=== PATIENT | female | born 1970 | race African-American/Black ===

== ENCOUNTER 2023-07-04 11:46 | Outpatient (REF) | payer MEDICAID, OTHER, SELFPAY ==
--- NOTE | ~2023-07-04 | MM_ITS ---
EXAMINATION: MM SCREENING DIGITAL BREAST TOMOSYNTHESIS, BILATERAL CLINICAL INFORMATION: Screening. Asymptomatic. COMPARISON: Mammography: There are no prior studies for comparison. TECHNIQUE: Digital breast tomosynthesis is performed in both the craniocaudal and mediolateral oblique views along with computer-aided detection (CAD). Synthesized 2D images are generated from the tomosynthesis. FINDINGS: There are scattered areas of fibroglandular density (ACR BI-RADS breast composition Category b). There are no significant masses, abnormal calcifications, or other abnormalities. MM/MM tomosynthesis screening BI IMPRESSION: No mammographic evidence of malignancy. ASSESSMENT: BI-RADS BI-RADS 1 - Negative RECOMMENDATION: Routine annual mammography screening. 1 year F/U This examination should not preclude the clinical evaluation of a suspicious palpable abnormality. This patient's information was entered into a reminder system with a target due date for their next mammogram.
== END 2023-07-04 11:47 | disposition home or self-care (01) ==
LOC: HO.MAMMO 11:46
PROVIDERS: PCP Nurse Practitioner Family; Visit Provider Nurse Practitioner Family
DX: Z12.31 Encounter for screening mammogram for malignant neoplasm of breast (principal)
CPT/HCPCS: 77063; 77067

== ENCOUNTER → 2023-07-04 12:00 | Outpatient (BNV) | payer SELFPAY | PROVIDERS: PCP Nurse Practitioner Family; Visit Provider Radiology Diagnostic Radiology | DX: Z12.31 Encounter for screening mammogram for malignant neoplasm of breast (principal) | CPT/HCPCS: 77063; 77067 ==

== ENCOUNTER 2023-08-22 12:54 | Outpatient (REF) | payer MEDICAID, OTHER, SELFPAY ==
[2023-08-22 16:13] LABS: MANUAL DIFF FLAG NO
[2023-08-22 16:23] LABS: Basophils Absolute Auto 0.1 X10*3/uL (0.0-0.2); Basophils Percent Auto 1.2 % (0-2); Eosinophils Absolute Auto 0.1 X10*3/uL (0.0-0.4); Eosinophils Percent Auto 1.4 % (0-4); Hematocrit 39.8 % (37.0-47.0); Hemoglobin 13.3 g/dl (12.0-16.0); Imm Gran Abs Auto 0.02 X10*3/uL (0.00-0.03); Imm Gran Pct Auto 0.4 % (0.0-0.4); Lymphocytes Absolute Auto 1.9 X10*3/uL (1.2-4.9); Lymphocytes Percent Auto 34.3 % (20-40); Mean Corpuscular HGB Conc 33.4 g/dl (31.0-35.0); Mean Corpuscular Hemoglobin 29.6 pg (27.0-33.0); Mean Corpuscular Volume 88.6 fL (80.0-98.0); Mean Platelet Volume 10.4 fL (9.4-12.3); Monocytes Absolute Auto 0.4 X10*3/uL (0.1-1.2); Monocytes Percent Auto 6.8 % (2-11); Neutrophils Absolute Auto 3.1 x10*3/uL (2.0-8.3); Neutrophils Percent Auto 55.9 % (45-73); Platelet Count 263 X10*3/uL (160-400); Red Blood Count 4.49 X10*6/uL (4.20-5.50); Red Cell Distribution Width 12.2 % (11.0-16.0); White Blood Count 5.6 X10*3/uL (4.8-10.8)
== END 2023-08-22 12:55 | disposition home or self-care (01) ==
LOC: HO.HHCL 12:54
PROVIDERS: Visit Provider Nurse Practitioner Family
DX: E11.65 Type 2 diabetes mellitus with hyperglycemia (principal); Z79.4 Long term (current) use of insulin
CPT/HCPCS: 36415; 85025

== ENCOUNTER 2023-09-06 13:19 | Outpatient (REF) | payer MEDICAID, OTHER, SELFPAY ==
--- NOTE | ~2023-09-06 | XR_ITS ---
EXAMINATION: XR SHOULDER, RIGHT CLINICAL INFORMATION: Chronic right shoulder pain, worse when lifting her arm COMPARISON: None available. TECHNIQUE: AP external rotation, Grashey, scapular Y, and axillary views of the right shoulder. FINDINGS: The bones and soft tissues are normal. No fracture. Glenohumeral and acromioclavicular alignment is anatomic with normal joint space. No abnormal soft tissue calcifications. XR/XR shoulder RT min 2V IMPRESSION: Unremarkable plain radiographs of the right shoulder.
== END 2023-09-06 13:20 | disposition home or self-care (01) ==
LOC: HO.HHCX 13:19
PROVIDERS: Visit Provider Nurse Practitioner Primary Care
DX: M25.511 Pain in right shoulder (principal)
CPT/HCPCS: 73030

== ENCOUNTER 2024-04-20 09:18 | Outpatient (REF) | payer MEDICAID, OTHER, SELFPAY ==
[2024-04-20 11:17] LABS: MANUAL DIFF FLAG NO
[2024-04-20 11:29] LABS: Basophils Absolute Auto 0.1 X10*3/uL (0.0-0.2); Basophils Percent Auto 1.1 % (0-2); Eosinophils Absolute Auto 0.1 X10*3/uL (0.0-0.4); Eosinophils Percent Auto 0.9 % (0-4); Hematocrit 40.9 % (37.0-47.0); Hemoglobin 13.8 g/dl (12.0-16.0); Imm Gran Abs Auto 0.02 X10*3/uL (0.00-0.03); Imm Gran Pct Auto 0.3 % (0.0-0.4); Lymphocytes Absolute Auto 2.2 X10*3/uL (1.2-4.9); Lymphocytes Percent Auto 33.7 % (20-40); Mean Corpuscular HGB Conc 33.7 g/dl (31.0-35.0); Mean Corpuscular Volume 88.9 fL (80.0-98.0); Mean Platelet Volume 11.9 fL (9.4-12.3); Monocytes Absolute Auto 0.4 X10*3/uL (0.1-1.2); Monocytes Percent Auto 6.3 % (2-11); Neutrophils Absolute Auto 3.8 x10*3/uL (2.0-8.3); Neutrophils Percent Auto 57.7 % (45-73); Platelet Count 195 X10*3/uL (160-400); Red Cell Distribution Width 12.7 % (11.0-16.0); White Blood Count 6.5 X10*3/uL (4.8-10.8)
[2024-04-20 12:03] LABS: Alanine Aminotransferase 42 U/L (0-31); Albumin Level 4.5 g/dL (3.5-5.0); Alkaline Phosphatase 102 U/L (39-117); Anion Gap 11 (12-20); Aspartate Amino Transferase 30 U/L (5-31); Bilirubin Total 0.3 mg/dL (0.0-1.0); Blood Urea Nitrogen 8 mg/dL (9-16); Calcium 9.5 mg/dL (8.4-10.2); Carbon Dioxide 26 mmol/L (22-29); Chloride 108 mmol/L (96-108); Cholesterol 178 mg/dL (<200); Estimated Glomerular Filt Rate > 60; Glucose Random 86 mg/dL (60-115); HDL Cholesterol 59 mg/dL (>40); LDL Cholesterol Calculated 107 mg/dL (<100); Potassium 3.3 mmol/L (3.3-5.1); Sodium 142 mmol/L (135-145); Total Protein 7.6 g/dL (6.5-8.0); Triglycerides 62 mg/dL (<150)
[2024-04-20 12:10] LABS: Creatinine Urine 75.48 mg/dL; Microalbum/Creatinine Ratio Ur 68.8 ug/mg cr (<30)
[2024-04-30 19:29] LABS: C. trachomatis RNA TMA NOT DETECTED (NOT DETECTED); N. gonorrhoeae RNA TMA NOT DETECTED (NOT DETECTED)
[2024-04-30 20:03] LABS: Trichomonas (NAAT) NOT DETECTED (NOT DETECTED)
[2024-04-30 20:33] LABS: HPV mRNA E6/E7 rflx Not Detected (Not Detected)
== END 2024-04-20 09:19 | disposition home or self-care (01) ==
LOC: HO.HHCL 09:18
PROVIDERS: Visit Provider Nurse Practitioner Family
DX: E11.65 Type 2 diabetes mellitus with hyperglycemia (principal); Z79.4 Long term (current) use of insulin; Z12.4 Encounter for screening for malignant neoplasm of cervix
CPT/HCPCS: 36415; 80053; 80061; 82043; 82570; 85025; 87491; 87591; 87624; 87661; 88142

== ENCOUNTER 2025-07-09 09:19 | Outpatient (REF) | payer SELFPAY ==
--- OUTSIDE RECORDS SUMMARY | 2025-07-09 10:12 | XMS_ITS | Encounter Summary ---
Author Organization [employer] Address [address] [facility] [address]t [place] [address] Care Team Providers Care Superintendent Terminal Name Role Phone Nancie Giordano ROUSTABOUT CREW PUSHER Primary Care Provider [phone] Rohini Cochran NP Primary Care Provider [phone] Eliceo Talavera MD Primary Care Prov ider Encounter Details Date Type Department Care Team (Late st Contact Info) Description 11/01/2023 Abstract [facility] ADULT DENTAL [address] [place], [place] [phone] Charlene Criselda [address] [place] [address] Social History Tobacco Use Types Packs/Day Years Used Date Smoking Tobacco: Former Cigarettes 0.5 10 Passive Smoke Exposure: Past Smokeless Tobacco: Never Comments:Quit smoking 4 year s ago Alcohol Use Standard Drinks/Week Comments Not Currently 0 (1 standard drink = 0.6 oz pur e alcohol) Depression Answer Date Recorded Patient Health Questionnaire-9 Score 19 09/07/2023 Patient Health Questionnaire-9 Score 19 09/07/2023 Last PHQ-9: Questionnaire Data Not on file 1 11/07/2022 Housing Stability Answer Date Recorded What is your housing situation today? I have jj clark 08/22/[address] you li ve. Do you have problems with any of the following? None of the above 08/22/2023 Food Insecurity Answer Date Recorded Within the past 12 months, y ou worried that your food would run out before you got money to buy more: Never True 08/22/2023 Within the past 12 months,th e food you bought just didn't last and you didn't have enough money to get more: Never True Transportation Answer Date Recorded In the past 12 months, has l ack of transportation kept you from medical appts, meetings, work or from getting things needed for daily living? No 08/22/2023 Utilities Answer Date Recorded In the past 12 months, has t he electric, gas, oil or water company threatened to shut off services in your home? No 08/22/2023 Depression Answer Date Recorded Patient Health Questionnaire-2 Score 4 09/07/2023 Comments Unknown Sex and Gender Information Value Date Recorded Sex Assigned at Female 01/26/2023 11:05 AM EDT Legal Sex Female 1:20 PM EST Gender Identity Female 01/26/2023 11:05 AM EDT Sexual Orientation Don't know 01/26/2023 11 :05 AM EDT documented as of this encounter Plan of Treatment Upcoming Encounters Date Type Department Care Team (Late st Contact Info) Description 07/09/2025 2:00 PM EDT Office Visit [facility] ADULT DENTAL [address] [place] [address] Earnest Fuller 10/10/2025 3:00 PM EST Office Visit [facility] OPTOM[facility] [address] [place] [address] Elsa Pathak, OD [address] [place] [address] documented as of this encounter Visit Diagnoses Not on filedocumented in this encounter Additional Health Concerns Assessment Noted Time PHQ-9 Depression Total Score: 19 023 4:23 PM EDT documented as of this encounter Care Teams Superintendent Terminal Relationship Specialty Start Date End Date Nancie Giordano FNP [address] [place] [address] PCP - General Family Medicine 04/12/23 07/10/24 Rohini Cochran NP [address] [place] [address] PCP - General Family Medicine 07/11/24 08/08/24 Eliceo Talavera MD [address] [place] [address] PCP - General Internal Medicine 04/22/25 documented as of this encounter
--- OUTSIDE RECORDS SUMMARY | 2025-07-09 10:12 | XMS_ITS | Encounter Summary ---
Author Organization [employer] Address [address] [facility] 7t [place] [address] Care Team Providers Care Liquefaction Supervisor Name Role Phone Nancie Giordano EDUCATOR SENIOR CLINICAL Primary Care Provider [phone] Rohini Cochran NP Primary Care Provider [phone] Eliceo Talavera MD Primary Care Prov ider Encounter Details Date Type Department Care Team (Late st Contact Info) Description 10/24/2023 Abstract [facility] ADULT DENTAL [address] [place], [place] [phone] Charlene Criselda [address] [place] [address] Social History Tobacco Use Types Packs/Day Years [...] Description 07/09/2025 2:00 PM EDT Office Visit [facility] ADULT DENTAL [address] [place] [address] Earnest Fuller 10/10/2025 3:00 PM EST Office Visit [facility] OPTOMETRY [address] [place] [address] Elsa Pathak, OD [address] [place] [address] documented as of this encounter Visit Diagnoses Not on filedocumented in this encounter Additional Health Concerns Assessment Noted Time PHQ-9 Depression Total Score: 19 023 4:23 PM EDT documented as of this encounter Care Teams Liquefaction Supervisor Relationship Specialty Start Date End Date Nancie Giordano FNP [address] [place] [address] PCP - General Family Medicine 04/12/23 07/10/24 Rohini Cochran NP [address] [place] [address] PCP - General Family Medicine 07/11/24 08/08/24 Eliceo Talavera MD [address] [place] [address] PCP - General Internal Medicine 04/22/25 documented as of this encounter
--- OUTSIDE RECORDS SUMMARY | 2025-07-09 10:12 | XMS_ITS | Encounter Summary ---
Author Organization [employer] Address [address] [facility] 7 [place] [address] Care Team Providers Care Verifying Machine Operator Name Role Phone Nancie Giordano Primary Care Provider [phone] Rohini Cochran NP Primary Care Provider [phone] Eliceo Talavera MD Primary Care Prov ider Encounter Details Date Type Department Care Team (Late st Contact Info) Description 04/13/2023 Orders Only [facility] MEDICINE [address] [place] [address] Nancie Giordano FNP [address] [place] [address] Social History Tobacco Use Types Packs/Day Years Used Date Smoking Tobacco: Never Smokeless Tobacco: Never Alcohol Use Standard Drinks/Week Comments Never 0 (1 standard drink = 0.6 oz pur e alcohol) Comments Unknown Sex and Gender Information Value [...] Description 07/09/2025 2:00 PM EDT Office Visit [facility] CH[facility] ADULT DENTAL [address] [place] [address] Earnest Fuller 10/10/2025 3:00 PM EST Office Visit [facility] OPTOMETRY [address] [place], [place] [phone] Elsa Pathak OD [address] [place] [address] documented as of this encounter Visit Diagnoses Not on filedocumented in this encounter Care Teams Verifying Machine Operator Relationship Specialty Start Date End Date Nancie Giordano FNP [address] [place] [address] PCP - General Family Medicine 04/12/23 07/10/24 Rohini Cochran NP [address] [place] [address] PCP - General Family Medicine 07/11/24 08/08/24 Eliceo Talavera MD [address] [place] [address] PCP - General Internal Medicine 04/22/25 documented as of this encounter
--- OUTSIDE RECORDS SUMMARY | 2025-07-09 10:12 | XMS_ITS | Encounter Summary ---
Author Organization [employer] Address [address] [facility] 7t [place] [address] Care Team Providers Care Watershed Program Manager Name Role Phone Nancie Giordano TILTING HEAD BAND SAWYER Primary Care Provider [phone] Rohini Cochran NP Primary Care Provider [phone] Eliceo Talavera MD Primary Care Prov ider Encounter Details Date Type Department Care Team (Late st Contact Info) Description 10/24/2023 Abstract [facility] ADULT DENTAL [address] [place], [place] [phone] Charlene Criselda [address] [place] [address] Social History Tobacco Use Types Packs/Day Years [...] Description 07/09/2025 2:00 PM EDT Office Visit [facility] ADULT DENTAL [address] [place] [address] Earnest Fuller 10/10/2025 3:00 PM EST Office Visit [facility] OPTOMETRY [address] [place] [address] Elsa Pathak, OD [address] [place] [address] documented as of this encounter Visit Diagnoses Not on filedocumented in this encounter Additional Health Concerns Assessment Noted Time PHQ-9 Depression Total Score: 19 023 4:23 PM EDT documented as of this encounter Care Teams Watershed Program Manager Relationship Specialty Start Date End Date Nancie Giordano FNP [address] [place] [address] PCP - General Family Medicine 04/12/23 07/10/24 Rohini Cochran NP [address] [place] [address] PCP - General Family Medicine 07/11/24 08/08/24 Eliceo Talavera MD [address] [place] [address] PCP - General Internal Medicine 04/22/25 documented as of this encounter
--- OUTSIDE RECORDS SUMMARY | 2025-07-09 10:12 | XMS_ITS | Encounter Summary ---
Author Organization [employer] Address [address] [facility] 7t [place] [address] Care Team Providers Care Senior Web Analyst Name Role Phone Nancie Giordano AIRDOX FITTER Primary Care Provider [phone] Rohini Cochran NP Primary Care Provider [phone] Eliceo Talavera MD Primary Care Prov ider Encounter Details Date Type Department Care Team (Late st Contact Info) Description 10/24/2023 Abstract [facility] ADULT DENTAL [address] [place], [place] [phone] Charlene Criselda [address] [place] [address] Social History Tobacco Use Types Packs/Day Years [...] Description 07/09/2025 2:00 PM EDT Office Visit [facility] CH[facility] ADULT DENTAL [address] [place] [address] Earnest Fuller 10/10/2025 3:00 PM EST Office Visit [facility] OPTOMETRY [address] [place] [address] Elsa Pathak, OD [address] [place] [address] documented as of this encounter Visit Diagnoses Not on filedocumented in this encounter Additional Health Concerns Assessment Noted Time PHQ-9 Depression Total Score: 19 023 4:23 PM EDT documented as of this encounter Care Teams Senior Web Analyst Relationship Specialty Start Date End Date Nancie Giordano FNP [address] [place] [address] PCP - General Family Medicine 04/12/23 07/10/24 Rohini Cochran NP [address] [place] [address] PCP - General Family Medicine 07/11/24 08/08/24 Eliceo Talavera MD [address] [place] [address] PCP - General Internal Medicine 04/22/25 documented as of this encounter
--- OUTSIDE RECORDS SUMMARY | 2025-07-09 10:12 | XMS_ITS | Encounter Summary ---
Author Organization [employer] Address [address] [facility] 7t [place] [address] Care Team Providers Care Manufacturing Helper Name Role Phone Nancie Girodano MECHANICAL AND AUTO BODY CAR CHECKER Primary Care Provider [phone] Rohini Cochran NP Primary Care Provider [phone] Eliceo Talavera MD Primary Care Prov ider Encounter Details Date Type Department Care Team (Late st Contact Info) Description 10/24/2023 Abstract [facility] ADULT DENTAL [address] [place], [place] [phone] Charlene Criselda [address] [place] [address] Social History Tobacco Use Types Packs/Day Years [...] Description 07/09/2025 2:00 PM EDT Office Visit [facility] CH[facility] ADULT DENTAL [address] [place] [address] Earnest Fuller 10/10/2025 3:00 PM EST Office Visit [facility] OPTOMETRY [address] [place] [address] Elsa Pathak, OD [address] [place] [address] documented as of this encounter Visit Diagnoses Not on filedocumented in this encounter Additional Health Concerns Assessment Noted Time PHQ-9 Depression Total Score: 19 023 4:23 PM EDT documented as of this encounter Care Teams Manufacturing Helper Relationship Specialty Start Date End Date Nancie Giordano FNP [address] [place] [address] PCP - General Family Medicine 04/12/23 07/10/24 Rohini Cochran NP [address] [place] [address] PCP - General Family Medicine 07/11/24 08/08/24 Eliceo Talavera MD [address] [place] [address] PCP - General Internal Medicine 04/22/25 documented as of this encounter
--- OUTSIDE RECORDS SUMMARY | 2025-07-09 10:12 | XMS_ITS | Encounter Summary ---
Author Organization [employer] Address [address] [facility] 7t [place] [address] Care Team Providers Care Ignition Mechanic Name Role Phone Nancie Giordano SEWAGE DISPOSAL ENGINEER Primary Care Provider [phone] Rohini Cochran NP Primary Care Provider [phone] Eliceo Talavera MD Primary Care Prov ider Encounter Details Date Type Department Care Team (Late st Contact Info) Description 10/24/2023 Abstract [facility] ADULT DENTAL [address] [place], [place] [phone] Charlene Criselda [address] [place] [address] Social History Tobacco Use Types Packs/Day Years [...] Description 07/09/2025 2:00 PM EDT Office Visit [facility] ADULT DENTAL [address] [place] [address] Earnest Fuller 10/10/2025 3:00 PM EST Office Visit [facility] OPTOMETRY [address] [place] [address] Elsa Pathak, OD [address] [place] [address] documented as of this encounter Visit Diagnoses Not on filedocumented in this encounter Additional Health Concerns Assessment Noted Time PHQ-9 Depression Total Score: 19 023 4:23 PM EDT documented as of this encounter Care Teams Ignition Mechanic Relationship Specialty Start Date End Date Nancie Giordano FNP [address] [place] [address] PCP - General Family Medicine 04/12/23 07/10/24 Rohini Cochran NP [address] [place] [address] PCP - General Family Medicine 07/11/24 08/08/24 Eliceo Talavera MD [address] [place] [address] PCP - General Internal Medicine 04/22/25 documented as of this encounter
--- OUTSIDE RECORDS SUMMARY | 2025-07-09 10:13 | XMS_ITS | Encounter Summary ---
Author Organization [employer] Address [address] [facility] 7t [place] [address] Care Team Providers Care Lode Miner Blasting Name Role Phone Eliceo Talavera MD Primary Care Prov ider Encounter Details Date Type Department Care Team (Late st Contact Info) Description 04/24/2025 Abstract [facility] CH[facility] MED & PEDS [address] [place] [address] Jose [place], [place] Social History Tobacco Use Types Packs/Day Years Used Date Smoking Tobacco: Former Cigarettes 0.5 10 Passive Smoke Exposure: Past Smokeless Tobacco: Never Comments:Quit smoking 4 year s ago Alcohol Use Standard Drinks/Week Comments Not Currently 0 (1 standard drink = 0.6 oz pur e alcohol) Depression Answer Date Recorded Patient Health Questionnaire-9 Score 6 04/05/2025 Patient Health Questionnaire-9 Score 6 04/05/2025 Last PHQ-9: Questionnaire Data Not on file 0 04/05/2025 Housing Stability Answer Date Recorded What is [...] Answer Date Recorded Patient Health Questionnaire-2 Score 6 04/05/2025 Comments Unknown Sex and Gender Information Value [...] Description 07/09/2025 2:00 PM EDT Office Visit [facility] ADULT DENTAL [address] [place] [address] Earnest Fuller 10/10/2025 3:00 PM EST Office Visit [facility] OPTOMETRY [address] [place] [address] Elsa Pathak, OD [address] [place] [address] documented as of this encounter Visit Diagnoses Not on filedocumented in this encounter Additional Health Concerns Assessment Noted Time PHQ-9 Depression Total Score: 6 04/05/20 25 8:45 AM EDT documented as of this encounter Care Teams Lode Miner Blasting Relationship Specialty Start Date End Date Eliceo Talavera MD [address] [place] [address] PCP - General Internal Medicine 04/22/25 documented as of this encounter
--- OUTSIDE RECORDS SUMMARY | 2025-07-09 10:13 | XMS_ITS | Encounter Summary ---
Author Organization [employer] Address [address] [facility] [address]t [place] [address] Care Team Providers Care Downstream Biomanufacturing Technician Name Role Phone Nancie Giordano Primary Care Provider [phone] Rohini Cochran NP Primary Care Provider [phone] Eliceo Talavera MD Primary Care Prov ider Encounter Details Date Type Department Care Team (Late st Contact Info) Description 05/14/2024 Orders Only [facility] CH[facility] MED & PEDS [address] [place] [address] Nancie Giordano FNP [address] [place] [address] Social History Tobacco Use Types Packs/Day Years [...] [facility] [address] [place] [address] Earnest Fuller 10/10/2025 3:00 PM EST Office Visit [facility] OPTOMETRY [address] [place] [address] Elsa Pathak OD [address] [place] [address] documented as of this encounter Visit Diagnoses Not on filedocumented in this encounter Additional Health Concerns Assessment Noted Time PHQ-9 Depression Total Score: 19 023 4:23 PM EDT documented as of this encounter Care Teams Downstream Biomanufacturing Technician Relationship Specialty Start Date End Date Nancie Giordano FNP [address] [place] [address] PCP - General Family Medicine 04/12/23 07/10/24 Rohini Cochran NP [address] [place] [address] PCP - General Family Medicine 07/11/24 08/08/24 Eliceo Talavera MD [address] [place] [address] PCP - General Internal Medicine 04/22/25 documented as of this encounter
--- OUTSIDE RECORDS SUMMARY | 2025-07-09 10:13 | XMS_ITS | Encounter Summary ---
Author Organization [employer] Address [address] [facility] 7t [place] [address] Care Team Providers Care Automotive Lube Technician Name Role Phone Eliceo Talavera MD Primary Care Prov ider Encounter Details Date Type Department Care Team (Late st Contact Info) Description 04/24/2025 Abstract [facility] CHC MED & PEDS [address] [place] [address] Jose [place], [place] Social History Tobacco Use Types Packs/Day [...] Description 07/09/2025 2:00 PM EDT Office Visit [facility] CH[facility] ADULT DENTAL [address] [place] [address] Earnest Fuller 10/10/2025 3:00 PM EST Office Visit [facility] OPTOMETRY [address] [place] [address] Elsa Pathak, OD [address] [place] [address] documented as of this encounter Visit Diagnoses Not on filedocumented in this encounter Additional Health Concerns Assessment Noted Time PHQ-9 Depression Total Score: 6 04/05/20 25 8:45 AM EDT documented as of this encounter Care Teams Automotive Lube Technician Relationship Specialty Start Date End Date Eliceo Talavera MD [address] [place] [address] PCP - General Internal Medicine 04/22/25 documented as of this encounter
--- OUTSIDE RECORDS SUMMARY | 2025-07-09 10:13 | XMS_ITS | Clinical Summary ---
Author Organization [employer] Address [address] [place] [address] Care Team Providers Care Clinical Counselor Name Role Phone Eliceo Talavera MD Primary Care Prov ider Allergies No known active allergies Medications * This document contains information received from the source organization and may not represent a complete record from that organization. UltiGuard SafePack Pen Needle 32G X 4 MM misc USE DIRECTED WITH INSULIN 01/27/20 23 Active Blood Pressure Monitor kit 1 kit 2 times daily. 1 kit 07/15/20 23 Active hydrOXYzine pamoate (Vistaril) 25 MG capsule Take 1 capsule (25 mg) by mouth every 6 (six) hours if needed for anxiety for up to 10 days. 30 capsule 08/22/20 23 Active glucose blood (FREESTYLE LITE) test stripIndications :Type 2 diabetes mellitus with hyperglycemia, unspecified whether prison insulin use ([facility]) TEST BLOOD SUGAR THREE TIMES DAILY DIRECTED 100 strip 11 06/18/20 24 Active acetaminophen (Tylenol) 500 MG tabletIndication s:Extruded tooth,Ankylosis of tooth Take 1 tablet (500 mg) by mouth every 6 (six) hours if needed for mild pain for up to 20 doses. 20 tablet 08/09/20 24 Active ibuprofen 600 MG tabletIndication s:Extruded tooth,Ankylosis of tooth Take 1 tablet (600 mg) by mouth every 6 (six) hours if needed for mild pain for up to 20 doses. 20 tablet 08/09/20 24 Active chlorhexidine (Peridex) 0.12 % solutionIndicati ons:Extruded tooth,Ankylosis of tooth Swish 15 mL morning and night for 1 minute. Spit, do not swallow. Do not eat or drink for 30 minutes following use. 473 mL 08/09/20 24 Active losartan (Cozaar) 50 MG tabletIndication s:Essential hypertension TAKE 1 TABLET BY MOUTH EVERY MORNING 90 tablet 3 09/24/20 24 Active Multiple Vitamin (Multivitamin) tabletIndication s:Elevated BP without diagnosis of hypertension TAKE 1 TABLET BY MOUTH EVERY MORNING 90 tablet 3 10/09/20 24 Active omeprazole (PriLOSEC) [address] capsuleIndicatio ns:Gastroesophag eal reflux disease without esophagitis TAKE 1 CAPSULE BY MOUTH EVERY DAY BEFORE BREAKFAST DO NOT BREAK, CRUSH, DISSOLVE OR CHEW 90 capsule 1 01/29/20 25 Active naproxen (Naprosyn) 500 MG tablet TAKE 1 TABLET BY MOUTH TWICE DAILY WITH MEALS 60 tablet 03/21/20 25 Active Continuous Glucose Tripe Cooker (FreeStyle Thee 2 [place]) device Use as directed to monitor glucose ever 8 hours. 1 each 04/19/20 25 Active Continuous Glucose Sensor (FreeStyle Thee 2 Sensor) misc USE TO CHECK BLOOD SUGAR EVERY 8 HOURS, CHANGE EVERY 14 DAYS 2 each 04/19/20 25 Active metFORMIN XR (Glucophage-XR) 500 MG 24 hr tablet TAKE 2 TABLETS BY MOUTH TWICE DAILY WITH MEALS 360 tablet 3 04/19/20 25 Active insulin degludec (Tresiba FlexTouch) 100 UNIT/ML injectionIndicat ions:Type 2 diabetes mellitus with hyperglycemia, with long-term current use of insulin (CMS/HCC) Inject 18 Units under the skin at bedtime. 15 mL 3 04/19/20 25 Active Dulaglutide 0.75 MG/0.5ML solution auto-injectorInd ications:Type 2 diabetes mellitus with hyperglycemia, with long-term current use of insulin (CMS/HCC) Inject 0.75 mg under the skin 1 (one) time per week. 2 mL 3 04/19/20 25 Active Blood Pressure kit 1 kit Once per day. 1 kit 04/19/20 25 Active melatonin 5 MG tablet TAKE 2 TABLETS (10 MG) BY MOUTH EVERY DAY AT BEDTIME NEEDED FOR SLEEP 180 tablet 3 05/15/20 25 Active empagliflozin (Jardiance) 25 MG Take 1 tablet (25 mg) by mouth Once per day. 90 tablet 3 06/12/20 25 026 Active Dulaglutide (Trulicity) 1.5 MG/0.5ML solution auto-injector Inject 1.5 mg under the skin 1 (one) time per week. 2 mL 3 06/12/20 Active empagliflozin (Jardiance) 10 MG Take 1 tablet (10 mg) by mouth Once per day. 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 06/12/2025 Screening for colon cancer 04/19/2025 Assessment & Plan (04/19/2025 11:04 AM EDT): Will refer for screening colonoscopy Encounter for screening mamm ogram for malignant neoplasm of breast 04/19/2025 Assessment & Plan (04/19/2025 11:06 AM EDT): Pending study she refers has scheduled appointment for May 01, will follow up results Primary hypertension 04/19/2025 Assessment & Plan (06/12/2025 12:33 PM EDT): Controlled, keep low sodium diet and exercise as tolerated, keep bp log, target <130/80 Assessment & Plan (04/19/2025 11:09 AM EDT): Will send blood pressure machine for home monitoring, keep low sodium diet and exercise as tolerated, target <130/80 Extruded tooth 08/09/2024 Ankylosis of tooth 08/09/2024 Dental calculus 10/07/2023 Periodontal disease 10/07/2023 Stress-related problem 09/05/2023 Assessment & Plan (09/07/2023 4:51 PM EDT): Patient with symptoms of depression and stress. No risk for SI/HI or self-harm. Reason for visit was to assess symptoms, provide intervention and support. Lack of network and not being able to work in the [place] due to documentation need is exacerbating symptoms. Patient does not have coverage for services. Clinician will do follow-up in-person session on 10/10 per patient's request. Provided psychoeducation about depression and ways to cope with stressful life events while at the same time practicing self-care. At this time Richa Mchugh meets criteria for Visit Diagnoses: Problem List Items Addressed This Visit Other Severe episode of recurrent major depressive disorder, without psychotic features (CMS/HCC) Stress-related problem Patient ready to address current needs Yes Strengths include awareness of the problem and desire to change outcome. PLAN: 1. Follow up with [facility]: Recommended for follow-up: Scheduled BE with clinician due to pt having insurance with no coverage for services. 2. Patient goal is to get paperwork/documentation and be able to work in the [place]. 3. Behavioral Recommendations a. Follow-up BE b. Incorporate coping skills discussed during today's appointment. c. Follow provider's recommendation to control pain Severe episode of recurrent major depressive disorder, without psychotic features 06/21/2023 Assessment & Plan (09/07/2023 4:50 PM EDT): Patient with symptoms of depression and stress. No risk for SI/HI or self-harm. Reason for visit was to assess symptoms, provide intervention and support. Lack of network and not being able to work in the [place] due to documentation need is exacerbating symptoms. Patient does not have coverage for services. Clinician will do follow-up in-person session on 10/10 per patient's request. Provided psychoeducation about depression and ways to cope with stressful life events while at the same time practicing self-care. At this time Richa Mchugh meets criteria for Visit Diagnoses: Problem List Items Addressed This Visit Other Severe episode of recurrent major depressive disorder, without psychotic features (CMS/HCC) Stress-related problem Patient ready to address current needs Yes Strengths include awareness of the problem and desire to change outcome. PLAN: 1. Follow up with [facility]: Recommended for follow-up: Scheduled BE with clinician due to pt having insurance with no coverage for services. 2. Patient goal is to get paperwork/documentation and be able to work in the [place]. 3. Behavioral Recommendations a. Follow-up BE b. Incorporate coping skills discussed during today's appointment. c. Follow provider's recommendation to control pain Assessment & Plan (06/21/2023 3:50 PM EDT): Assessment: Patient with raising thoughts, insomnia, worthlessness, fatigue, crying spells, anhedonia, trouble with concentration, passive SI wthout plan or intention. 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 Patient will benefit from Ind. Therapy with CBT approach to challenge negative thoughts and patterns and promote cognitive reconstruction. At this time Richa Mchugh meets criteria for Visit Diagnoses: Problem List Items Addressed This Visit None Patient ready to address current needs Yes Strengths include willing to seek treatment. PLAN: 1. Follow up with [facility]: Recommended for follow-up: 06/30/23 at 3:30pm 2. Patient goal is to improve mental health 3. Behavioral Recommendations a. Ind. Therapy b. Use of coping skills provided Type 2 diabetes mellitus with hyperglycemia 01/06 Assessment & Plan (06/12/2025 12:35 PM EDT): Not at target, will increase trulicity to 1.5mg, increase jardiance to 25mg, continue low carb/no sugar diet, follow up in 3 months Assessment & Plan (04/19/2025 11:01 AM EDT): Will order blood glucose testing supplies, continue with tresiba, trulicity and metformin will follow up in office Will refer for eye exam Encounters * This document contains information received from the source organization and may not represent a complete record from that organization. 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 type 2 diabetes mellitus (CMS/HCC) (Primary Dx); Type 2 diabetes mellitus with hyperglycemia, with long-term current use of insulin (CMS/HCC); Severe episode of recurrent major depressive disorder, without psychotic features (CMS/HCC); Primary hypertension 06/12/2025 Travel 05/15/2025 Refill [facility] [address] [place] [address] Nancie Giordano FNP 04/30/2025 Travel 04/29/2025 Telephone [facility] [address] [place] [address] Dorota Watson MD 04/24/2025 Abstract [facility] [address] [place] [address] Itzel Garcia MA 04/24/2025 Abstract [facility] [address] [place] [address] Itzel Garcia MA from Last 3 Months Immunizations Immunization Administration Dates Next Due Influenza injectable quadrivalent preservative f ree 07/15/2023,01/26/2023 Family History Medical History Relation Name Comments Diabetes Father Diabetes Maternal Grandfather Diabetes Mother Retinal degeneration Mother Relation Name Status Comments Father Maternal Grandfather Mother Social History Tobacco Use Types Packs/Day Years Used Date Smoking Tobacco: Former Cigarettes 0.5 10 Passive Smoke Exposure: Past Smokeless Tobacco: Never Tobacco Cessation:Counseling Given: Not Answered Comments:Quit smoking 4 years ago Alcohol Use Standard Drinks/Week Comments Not Currently 0 (1 standard drink = 0.6 oz pur e alcohol) Depression Answer Date Recorded Patient Health Questionnaire-9 Score 6 04/05/2025 Patient Health Questionnaire-9 Score 6 04/05/2025 Last PHQ-9: Questionnaire Data Not on file 0 04/05/2025 Housing Stability Answer Date Recorded What is your housing situation today? I have jj clark 06/12/[address] you li ve. Do you have problems with any of the following? None of the above 06/12/2025 Food Insecurity Answer Date Recorded Within the past 12 months, y ou worried that your food would run out before you got money to buy more: Never True 06/12/2025 Within the past 12 months,th e food you bought just didn't last and you didn't have enough money to get more: Never True 04/2025 Transportation Answer Date Recorded In the past 12 months, has l ack of transportation kept you from medical appts, meetings, work or from getting things needed for daily living? No 06/12/2025 Utilities Answer Date Recorded In the past 12 months, has t he electric, gas, oil or water company threatened to shut off services in your home? No 06/12/2025 Depression Answer Date Recorded Patient Health Questionnaire-2 Score 6 04/05/2025 Internet Access Answer Date Recorded Internet Access Q1 Yes 06/12/2025 Internet Access Q2 Not on file 06/12/2025 Comments Unknown Sex and Gender Information Value Date Recorded Sex Assigned at Female 01/26/2023 11:05 AM EDT Legal Sex Female 1:20 PM EST Gender Identity Female 01/26/2023 11:05 AM EDT Sexual Orientation Don't know 01/26/2023 11 :05 AM EDT Last Filed Vital Signs Vital Sign Reading Time Taken Comments Blood Pressure 128/82 06/12/2025 11:25 AM EDT Pulse 80 06/12/2025 11:12 AM EDT Temperature 36.8 C (98.3 F) 06/12/2025 11:12 AM EDT Respiratory Rate 18 06/12/2025 11:12 AM EDT Oxygen Saturation 98% 06/12/2025 11:12 AM EDT Inhaled Oxygen Concentration - - Weight 57.2 kg (126 lb) 06/12/2025 11:12 AM EDT Height 160 cm (5' 3 ) 06/12/2025 11:12 AM EDT Body Mass Index 22.32 06/12/2025 11:12 AM EDT Plan of Treatment Upcoming Encounters Date Type Department Care Team (Late st Contact Info) Description 07/09/2025 2:00 PM EDT Office Visit [facility] [address] [place] [address] Earnest Fuller 10/10/2025 3:00 PM EST Office Visit [facility] [address] [place] [address] Elsa Pathak, OD [address] [place] [address] Health Maintenance Due Date Last Done Comments CT Colonography 1972 Colonoscopy 1972 Colorectal Cancer Screening 1972 FIT DNA/Cologuard 1972 FIT 1972 FOBT 1972 Sigmoidoscopy 1972 Family Planning (PISQ) 1987 DTaP/Tdap/Td Vaccines (1 - Tdap) 1991 Hepatitis B Vaccines (1 of 3 - 19+ 3-dose series) 1991 Pneumococcal Vaccine: 50+ Years (1 of 2 - PCV) 1991 Zoster Vaccines (1 of 2) 2022 Eye Exam 06/02/2024 06/02/2023, 05/08, 06/02/2023, Additional history exists Dental Oral Exam 02/26/2025 08/27/2024, 09/12/2023 Dental Prophylaxis 02/26/2025 08/27/2024, 10/07/2023 Diabetes: Urine Protein Screening 04/20/2025 04/20/2024, 04/07/2023 Lipid Panel 04/20/2025 04/20/2024, 04/07/2023 Mammogram 07/04/2025 07/04/2023 COVID-19 Vaccine ( season) 2025 Influenza Vaccine (#1) 2025 07/15/2023, 2022 Tobacco Screening 08/27/2025 08/27/2024 Dental X-Ray: Bitewings 08/28/2025 08/27/20 24, 07/02/2024, 06/27/2024, Additional history exists Diabetes: Hemoglobin A1C 09/12/2025 025, 04/09/2024, 01/20/2024, Additional history exists Depression Screening 04/05/2026 04/05/2025, 04/05/20 25 Alcohol/Substance Use Screening 06/12/2026 06/12/2025 Diabetes: Foot Exam 06/12/2026 06/12/2025, 06/12/2025, 06/12/2025, Additional history exists Disability Screening 06/12/2026 06/12/2025 SDOH Screening 06/12/2026 06/12/2025 Dental X-Ray: Full Mouth 09/13/2026 09/12/2023 Cervical Cancer Screening 04/23/2029 HPV/Cotest 04/23/2029 04/23/2024 Pap Smear 04/24/2030 04/24/2025, 04/23/2024 RSV Patients and Patients Aged 60 years or older (1 - 1-dose 75+ series) 2047 HIV Screening Completed 04/07/2023 Hepatitis C Screening Completed 04/07/2023 HIB Vaccines Aged Out No longer eligi ble based on patient's age to complete this topic HPV Vaccines Aged Out No longer eligi ble based on patient's age to complete this topic Hepatitis A Vaccines Aged Out No long er eligible based on patient's age to complete this topic IPV Vaccines Aged Out No longer eligi ble based on patient's age to complete this topic Meningococcal B Vaccine Aged Out No l onger eligible based on patient's age to complete this topic Meningococcal Vaccine Aged Out No benjamin estefania eligible based on patient's age to complete this topic RSV under 20 months Aged Out No longe r eligible based on patient's age to complete this topic Rotavirus Vaccines Aged Out No longer eligible based on patient's age to complete this topic Procedures Procedure Name Priority Date/Time Associated Diagnosis Comments POCT GLUCOSE Routine 06/12/2025 11:24 AM EDT Type 2 diabetes mellitus with hyperglycemia, with long-term current use of insulin ([facility]) POCT GLYCATED HEMOGLOBIN, TOTAL Routine 06/12/2025 11:24 AM EDT Type 2 diabetes mellitus with hyperglycemia, with long-term current use of insulin (CMS/[facility]) PROPHYLAXIS - ADULT Routine 08/27/2024 2 :00 PM EDT BITEWINGS - 4 RADIOGRAPHIC IMAGES Routine 08/27/2024 2:00 PM EDT PERIODIC ORAL EVALUATION - ESTABLISHED PATIENT Routine 08/27/2024 2:00 PM EDT Periodontal disease Dental calculus Encounter for dental examination HPV MRNA E6/E7 REFLEX TO HPV 16, 18/45 Routine 04/23/2024 10:08 AM EDT PAP SMEAR Routine 04/23/2024 10:08 AM EDT ALBUMIN, RANDOM URINE W/CREATININE Routine 04/20/2024 9:20 AM EDT Type 2 diabetes mellitus with hyperglycemia, with long-term current use of insulin ([facility]) LIPID PANEL, STANDARD Routine 04/20/2024 9:20 AM EDT Type 2 diabetes mellitus with hyperglycemia, with long-term current use of insulin (CMS/HCC) INTRAORAL - COMPLETE SERIES OF RADIOGRAPHIC IMAGES Routine 09/12/2023 1:30 PM EST Hypereruption of tooth Encounter for dental examination Dental caries Periodontal disease Dental calculus BI MAMMOGRAM SCREENING TOMOSYNTHESIS BILATERAL Routine 07/04/2023 12:15 PM EDT HEPATITIS C AB W/REFL TO HCV RNA, QN, PCR Routine 04/07/2023 9:27 AM EDT Healthcare maintenance HIV 1/2 ANTIGEN/ANTIBODY, FOURTH GENERATION W/RFL Routine 04/07/2023 9:27 AM EDT Healthcare maintenance from Last 3 Months or Most Recently Relevant to Health Maintenance Results * (ABNORMAL) POCT A1c (06/12/2025 11:24 AM EDT) Hemoglobin A1C 10.7(A) 4.0 - 5.7 % QC Media Lot # Comment:[id number] Lot# Expiration Date Comment:01/15/2027 Blood 06/12/2025 11:2 4 AM EDT Eliceo Edmondson MD POINT OF CARE TEST ENTER/EDIT ORDERABLES Final Result * (ABNORMAL) POCT glucose manually resulted (06/12/2025 11:24 AM EDT) Pathologist [facility] Glucose Blood, POC 361(A) 60 - 200 mg/dL QC Media Lot # Comment:[id number] Lot# Expiration Date Comment:09/05/2025 Blood Capillary blood specimen / Unknown 06/12/2025 11:24 AM EDT Eliceo Edmondson MD POINT OF CARE TEST ENTER/EDIT ORDERABLES Final Result * HPV mRNA E6/E7 w/Reflex to HPV Genotypes 16, 18/45 (04/23/2024 10:08 AM EDT) HPV nRNA E6/E7 Not Detected Not Detected [facility] Comment:Methodology: Transcr iption-Mediated AmplificationThis assay detects E6/E7 viral messenger RNA (mRNA) from 14high-risk HPV types (16,18,31,33,35,39,45,51,52,56,58,59,66,68).Cervical sources are required for HPV testing.If a vaginal source from a patient who has had atotal hysterectomy with removal of cervix wassubmitted, please contact the testing laboratoryfor alternative testing options.For additional information, please refer [email or web address].Nvidia/faq/ROC668w3(This link if provided for information/educational purposes only.)THIS TEST WAS PERFORMED AT:[email or web address] [place] [phone] OWENS MD HPV mRNA E6/E7 [facility] HPV 16 RNA [facility] HPV 18/45 RNA [facility] 04/23/2024 10:0 8 AM EDT 04/24/2024 9:40 AM EDT us Nancie Giordano [facility] CYTOLOGY ORDERABLES Final R esult [facility] [address] [place] [phone] * Pap Smear (04/23/2024 10:08 AM EDT) 04/23/2024 10:0 8 AM EDT 04/24/2024 8:40 AM EDT Narrative [facility] - 05/20/2024 5:07 PM EDT ----- ------- Name: Richa Patten Age/Sex: 53/F : 1970 Unit#: [id number] Attend Dr: Nancie Giordano FOOTBALL COACH Re04/20/24 Status: DEP REF Location: [facility] Disch: ----- ------- SPEC : [id number] RECD: 04/24/24-839 STATUS: ROYAL MARTEL NUM: [id number] TRUPTI: 04/23/24-[address]: Nancie Giordano FOOTBALL COACH ENTERED: 04/24/24-1203 SP TYPE: Pap Smr OTHR DR: ORDERED: Pap Smear Interpretation Satisfactory for evaluation. Negative for intraepithelial lesion or malignancy. HPV mRNA E6/E7: NOT DETECTED This assay detects E6/E7 viral messenger RNA (mRNA) from 14 high-risk HPV types (16, 18, 31, 33, 35, 39, 45, 51, 52, 56, 58, 59, 66, 68) HPV testing performed by [facility], [place], [place]. See reference laboratory portion of the EMR for entire report. Clinical Information LMP: Unknown date Previous PAP test: Unknown date, WNL Material Received ThinPrep-Cervical ----- ------- Signed (signature on file) Alisson Donte Payan 05/20/24 1707 ----- ------- END OF REPORT [facility] CYT[facility] ORDERABLES Final R esult Performing Organization Address City/[facility]/ZIP Co de Phone Number [facility] [address] [place] [address] [phone] * (ABNORMAL) Albumin, Random Urine W/Creatinine (04/20/2024 9:20 AM EDT) Creatinine, Urine 75.48 mg/dL [facility] Microalbumin Urine 52.0 mg/L [facility] Microalbum Creatinine Ratio Ur 68.8(H) <30 ug/mg cr [facility] Comment:Albumin/Creatinine R atio Reference Ranges: Normal: < 30 ug/mg creatinine Microalbuminuria: 30 - 300 ug/mg creatinineClinical Albuminuria: > 300 ug/mg creatinine Urine (Urine, Random) 04/20/2024 9:20 AM EDT 04/20/2024 11:11 AM EDT [facility] URINE ORDERABLES Final Resu lt Performing Organization Address [facility]/ZIP Co de Phone Number [facility] [address] [place] [address] [phone] * (ABNORMAL) Lipid Panel, Standard (04/20/2024 9:20 AM EDT) Triglycerides 62 <150 mg/dL [facility] Comment:Desirable Triglyceri de: less than 150 mg/dLBorderline High Triglyceride 150-199 mg/dLHigh Triglyceride: 200-499 mg/dLVery High Triglyceride: greater than or equal to 5OO mg/dL Cholesterol 178 <200 mg/dL [facility] Comment:Desirable Cholestero l: less than 200 mg/dLBorderline High Cholesterol: 200-239 mg/dLHigh Cholesterol: greater than 239 mg/dL LDL Cholesterol Calculated 107(H) <100 mg/dL [facility] Comment:Desirable LDL: less than 100 mg/dLNear Optimal/Above Optimal LDL: 110- 129 mg/dLBorderline High LDL: 130-159 mg/dLHigh LDL: 160-189 mg/dLVery High LDL: greater than or equal to 190 mg/dL HDL Cholesterol 59 >40 mg/dL [facility] Comment:Desirable HDL: great er than 40 mg/dL Note: This HDL assay may give artificially low results in patients with liver disease. Blood Venous blood specimen / Unknown 04/20/2024 9:20 AM EDT 04/20/2024 11:12 AM EDT Nancie Giordano [facility] BLOOD ORDERABLES Final Resu lt Performing Organization Address City/State/[facility] Co de Phone Number [facility] [address] [place] [phone] * BI Mammogram Screening Tomosynthesis Bilateral (07/04/2023 12:15 PM EDT) Anatomical Region Laterality Modality Breast Bilateral Mammography 07/04/2023 12:1 5 PM EDT Narrative 07/15/2023 2:21 PM EDT [facility] [address] [place] [address] Mammography Report Signed Patient: Richa Patten MR#: [id number] : 1970 Acct:[id number] Age/Sex: 52 / F ADM Date: 07/04/23 Loc: HO.MAMMO Attending Dr: Nancie Giordano FOOTBALL COACH Ordering Physician: Nancie Giordano NP Results: 1Negativ e Date of Service: 07/04/23 Follow Up: 1 Year From Orig inal Mammogram Procedure(s): MM tomosynthesis screening BI Accession Number(s): [id number] cc: Nancie Giordano NP EXAMINATION: MM SCREENING DIGITAL BREAST TOMOSYNTHESIS, BILATERAL CLINICAL INFORMATION: Screening. Asymptomatic. COMPARISON: Mammography: There are no prior studies for comparison. TECHNIQUE: Digital breast tomosynthesis is performed in both the craniocaudal and mediolateral oblique views along with computer-aided detection (CAD). Synthesized 2D images are generated from the tomosynthesis. FINDINGS: There are scattered areas of fibroglandular density (ACR BI-RADS breast composition Category b). There are no significant masses, abnormal calcifications, or other abnormalities. MM/MM tomosynthesis screening BI IMPRESSION: No mammographic evidence of malignancy. ASSESSMENT: BI-RADS BI-RADS 1 - Negative RECOMMENDATION: Routine annual mammography screening. 1 year F/U This examination should not preclude the clinical evaluation of a suspicious palpable abnormality. This patient's information was entered into a reminder system with a target due date for their next mammogram. Dictated By: Maxine Proctor MD Signed By: <Electronically signed by Maxine Proctor MD in [place]> 07/15/23 1417 DD/ 1215 TD/TT: Route Jumper: Procedure Note Donotuseinterpreter, Image - 07/18/2023 [facility] [address] [place] [address] Mammography Report Signed Patient: Richa PattenMR#: [id number] : 1970Acct:[id number] Age/Sex: 52 / FADM Date: 07/04/23 Loc: HO.MAMMO Attending Dr: Nancie Giordano FOOTBALL COACH Ordering Physician: Nancie Giordano NPResults: 1Negativ e Date of Service: 07/04/23Follow Up: 1 Year From Orig inal Mammogram Procedure(s): MM tomosynthesis screening BI Accession Number(s): [id number] cc: Nancie Giordano NP EXAMINATION: MM SCREENING DIGITAL BREAST TOMOSYNTHESIS, BILATERAL CLINICAL INFORMATION: Screening. Asymptomatic. COMPARISON: Mammography: There are no prior studies for comparison. TECHNIQUE: Digital breast tomosynthesis is performed in both the craniocaudal and mediolateral oblique views along with computer-aided detection (CAD). Synthesized 2D images are generated from the tomosynthesis. FINDINGS: There are scattered areas of fibroglandular density (ACR BI-RADS breast composition Category b). There are no significant masses, abnormal calcifications, or other abnormalities. MM/MM tomosynthesis screening BI IMPRESSION: No mammographic evidence of malignancy. ASSESSMENT: BI-RADS BI-RADS 1 - Negative RECOMMENDATION: Routine annual mammography screening. 1 year F/U This examination should not preclude the clinical evaluation of a suspicious palpable abnormality. This patient's information was entered into a reminder system with a target due date for their next mammogram. Dictated By: Maxine Proctor MD Signed By: <Electronically signed by Maxine Proctor MD in OV> 07/15/23 1417 DD/ 1215 TD/TT: Route Jumper: Nancie Giordano [facility] IM BI PROCEDURES Edited Result - Final * Hepatitis C Antibody with Reflex to HCV, RNA, Quantitative, Real-Time PCR (04/07/2023 9:27 AM EDT) Hepatitis C Antibody NON-REACT ALEX NON-REACT ALEX [facility] Index 0.13 <1.00 [facility] Comment: HCV antibody was non-reactive. There is no laboratory evidence of HCV infection. In most cases, no further action is required. However, if recent HCV exposure is suspected, a test for HCV RNA (test code 35998) is suggested. For additional information please refer to http://education.Nvidia/faq/WCF30y9 (This link is being provided for informational/ educational purposes only.) Blood Venous blood specimen / Unknown 04/07/2023 9:27 AM EDT 04/07/2023 9:28 AM EDT Narrative [facility] - 04/08/2023 6:53 PM EDT FASTING:YES FASTING: YES Michelle [facility]CL[facility] LAB BLOOD ORDERABLES Final Resul t [facility] [address], [place] [address] [facility] [address] [place] [address] * HIV-1/2 Antigen and Antibodies, Fourth Generation, with Reflexes (04/07/2023 9:27 AM EDT) HIV Antigen/Antibody, 4th Generation NON-REAC TIVE NON-REAC TIVE [facility] [place] [facility] Comment: HIV-1 antigen and HIV-1/HIV-2 antibodies were not detected. There is no laboratory evidence of HIV infection. PLEASE NOTE: This information has been disclosed to you from records whose confidentiality may be protected by state law. If your state requires such protection, then the state law prohibits you from making any further disclosure of the information without the specific written consent of the person to whom it pertains, or as otherwise permitted by law. A general authorization for the release of medical or other information is NOT sufficient for this purpose. For additional information please refer to http://education.Nvidia/faq/EPO996 (This link is being provided for informational/ educational purposes only.) The performance of this assay has not been clinically validated in patients less than 2 years old. Blood Venous blood specimen / Unknown 04/07/2023 9:27 AM EDT 04/07/2023 9:28 AM EDT Narrative [facility] - 04/08/2023 6:53 PM EDT FASTING:YES FASTING: YES [facility] LAB BLOOD ORDERABLES Final Resul t [facility] [address], [place] [address] [facility] [place] [facility] [address] [place] [address] from Last 3 Months or Most Recently Relevant to Health Maintenance Insurance [employer] HSN FULL DENTAL - HSN FULL (MEDICAID) DENTAL-[facility] MEDICAID LIMITED ADULT Care Teams Clinical Counselor Relationship Specialty Start Date End Date Eliceo Talavera MD [address] [place] [id number] PCP - General Internal Medicine 04/22/25
--- OUTSIDE RECORDS SUMMARY | 2025-07-09 10:13 | XMS_ITS | Encounter Summary ---
Author Organization [employer] Address [address] [facility] [address] [place] [address] Care Team Providers Care Riding Teacher Name Role Phone Nancie Giordano PERMIT SPECIALIST Primary Care Provider [phone] Rohini Cochran NP Primary Care Provider [phone] Eliceo Talavera MD Primary Care Prov ider Encounter Details Date Type Department Care Team (Late st Contact Info) Description 10/24/[address] [facility] ADULT DENTAL [address] [place], [place] [phone] Charlene Criselda [address] [place] [address] Social History Tobacco Use Types Packs/Day Years [...] Description 07/09/2025 2:00 PM EDT Office Visit [facility] CHC ADULT DENTAL [address] [place] [address] Earnest Fuller 10/10/2025 3:00 PM EST Office Visit [facility] OPTOMETRY [address] [place] [address] Elsa Pathak, OD [address] [place] [address] documented as of this encounter Visit Diagnoses Not on filedocumented in this encounter Additional Health Concerns Assessment Noted Time PHQ-9 Depression Total Score: 19 023 4:23 PM EDT documented as of this encounter Care Teams Riding Teacher Relationship Specialty Start Date End Date Nancie Giordano FNP [address] [place] [address] PCP - General Family Medicine 04/12/23 07/10/24 Rohini Cochran NP [address] [place] [address] PCP - General Family Medicine 07/11/24 08/08/24 Eliceo Talavera MD [address] [place] [address] PCP - General Internal Medicine 04/22/25 documented as of this encounter
--- OUTSIDE RECORDS SUMMARY | 2025-07-09 10:13 | XMS_ITS | Encounter Summary ---
Author Organization [employer] Address [address] [facility] [address] [place] [address] Care Team Providers Care Hand Coke Drawer Name Role Phone Nancie Giordano Primary Care Provider [phone] Rohini Cochran NP Primary Care Provider [phone] Eliceo Talavera MD Primary Care Prov ider Reason for Visit * Reason Onset Date Comments Med Refill CGM 05/14/2024 Patient walked i n confused about the sensor patient stated she doesn't know how to put it on needs help, please call patient her name is [phone] or [phone] Encounter Details Date Type Department Care Team (Late st Contact Info) Description 05/14/2024 Telephone [facility] MEDICINE [address] [place], [place] [phone] Nancie Giordano FNP [address] [place], [place] [phone] Med Refill; CGM (Patient walked in confused about the sensor patient stated she doesn't know how to put it on needs help, please call patient her name is [phone] or [phone]) Social History Tobacco Use Types Packs/Day Years [...] your housing situation today? I have jj sing 08/22/[address] you li [...] AM EDT documented as of this encounter Miscellaneous Notes * Telephone Encounter - Gabrielle Lofton RN - 05/15/2024 3:21 PM EDT Patient walked in saying her labs were abnormal and requested plan of care. Message sent to PCP forreview. * Telephone Encounter - Genesis Pedersen RN - 05/14/2024 4:28 PM EDT T/C to pt. For schedule nurse visit for re- teach for CGM installation and removal. Pt. Schedule on05/15/2024. Pt. Verbally greed and understood. * Telephone Encounter - Alisia Baires - 05/14/2024 2:34 PM EDT Patient walked in confused about the sensor patient stated she doesn't know how to put it on needs help, please call patient her name is [phone] or [phone] documented in this encounter Plan of Treatment Upcoming Encounters Date Type Department Care Team (Late st Contact Info) Description 07/09/2025 2:00 PM EDT Office Visit [facility] CHC ADULT DENTAL [address] [place], [place] [phone] Earnest uFller 10/10/2025 3:00 PM EST Office Visit [facility] OPTOMETRY [address] [place], [place] [phone] Elsa Pathak, OD [address] [place] [address] documented as of this encounter Visit Diagnoses Not on filedocumented in this encounter Additional Health Concerns Assessment Noted Time PHQ-9 Depression Total Score: 19 023 4:23 PM EDT documented as of this encounter Care Teams Hand Coke Drawer Relationship Specialty Start Date End Date Nancie Giordano FNP [address] [place] [address] PCP - General Family Medicine 04/12/23 07/10/24 Rohini Cochran NP [address] [place] [address] PCP - General Family Medicine 07/11/24 08/08/24 Eliceo Talavera MD [address] [place], [place] [phone] PCP - General Internal Medicine 04/22/25 documented as of this encounter
[2025-07-09 14:32] LABS: MANUAL DIFF FLAG NO
[2025-07-09 14:35] LABS: Hematocrit 44.2 % (37.0-47.0); Hemoglobin 14.7 g/dl (12.0-16.0); Imm Gran Abs Auto 0.01 X10*3/uL (0.00-0.03); Imm Gran Pct Auto 0.2 % (0.0-0.4); Lymphocytes Absolute Auto 1.5 X10*3/uL (1.2-4.9); Mean Corpuscular HGB Conc 33.3 g/dl (31.0-35.0); Mean Corpuscular Hemoglobin 30.1 pg (27.0-33.0); Mean Corpuscular Volume 90.6 fL (80.0-98.0); NRBC Abs Auto 0.020 X10*3/uL (0.0-0.012); NRBC Pct Auto 0.4 /100WBC (0.0-0.2); Platelet Count 198 X10*3/uL (160-400); Red Blood Count 4.88 X10*6/uL (4.20-5.50); White Blood Count 4.9 X10*3/uL (4.8-10.8)
[2025-07-09 15:03] LABS: Alanine Aminotransferase 47 U/L (0-31); Albumin Level 4.8 g/dL (3.5-5.0); Alkaline Phosphatase 88 U/L (39-117); Anion Gap 14 (12-20); Aspartate Amino Transferase 46 U/L (5-31); Blood Urea Nitrogen 14 mg/dL (9-16); Calcium 8.9 mg/dL (8.4-10.2); Carbon Dioxide 26 mmol/L (22-29); Chloride 107 mmol/L (96-108); Cholesterol 204 mg/dL (<200); Estimated Glomerular Filt Rate > 60; HDL Cholesterol 58 mg/dL (>40); Potassium 3.9 mmol/L (3.3-5.1); Sodium 143 mmol/L (135-145); Total Protein 7.8 g/dL (6.5-8.0); Triglycerides 66 mg/dL (<150)
[2025-07-09 15:12] LABS: Microalbum/Creatinine Ratio Ur 14.0 ug/mg cr (<30)
== END 2025-07-09 09:20 | disposition home or self-care (01) ==
LOC: HO.CHCLDS 09:19
PROVIDERS: Visit Provider Internal Medicine
DX: E11.65 Type 2 diabetes mellitus with hyperglycemia (principal); Z79.4 Long term (current) use of insulin
CPT/HCPCS: 36415; 80053; 80061; 82043; 82570; 84443; 85025